=== PATIENT | female | born 1990 | race Two or more races ===

== ENCOUNTER 2018-06-12 04:01 | Inpatient (IN) | payer MEDICAID ==
[2018-06-12] VITALS (9 sets, daily range): BP systolic 104–137; BP diastolic 48–83
[~2018-06-12] VITALS: Ht 157.5 cm; Wt 83.5 kg
[2018-06-12 05:56] LABS: INR 0.87 (0.9-1.15); Partial Thromboplastin Time 30.3 sec (23.78-33.04); Prothrombin Time 9.4 sec (9.27-12.13)
[2018-06-12 06:03] LABS: BUN/Creatinine Ratio 17.2; Calcium 8.8 mg/dL (8.5-10.1); Hematocrit 36.5 % (36.0-46.0); Hemoglobin 12.2 g/dL (12.2-16.2); Mean Corpuscular Hgb Conc. 33.3 g/dL (32.0-36.0); Mean Corpuscular Volume 90.2 fL (80.0-100.0); Platelet Count (auto) 241 10^3/uL (140-450); Potassium 3.7 mmol/L (3.5-5.1); Red Blood Cells 4.05 10^6/uL (4.0-5.20); Red Cell Distribution Width 14.6 % (11.8-14.3); White Blood Cell 11.6 10^3/uL (4.4-10.8)
[2018-06-12 06:04] LABS: Bilirubin, Total 0.4 mg/dL (0.2-1.0); Total Protein 7.1 g/dL (6.4-8.2)
[2018-06-12 06:11] LABS: Basophils % (manual) 0 (0.0-2.0); Blast Cells 0; Metamyelocytes % 0; Myelocytes % 0; Promyelocytes % 0; Reactive Lymphocytes 0
[2018-06-12] MEDS: LACTATED RINGER'S 1,000 ML IV SCH ×3 (06:22→22:00)
[2018-06-12 06:46] LABS: Band Neutrophils % (manual) 5; Eosinophils % (manual) 1 (0-7); Lymphocytes % (manual) 18 (10.0-50.0); Monocytes % (manual) 3 (0-12)
[2018-06-12] MEDS ORDERED: TETRACAINE 1% INJ 2 ML VIAL IJ ONE (06:48)
[2018-06-12] MEDS ORDERED: LIDOCAINE 1% HCL (LOCAL ANESTH.) INJ 20ML MDV ONE (06:48)
[2018-06-12] MEDS ORDERED: OXYTOCIN 10 UNIT/ML 10ML VIAL ONE (06:56)
[2018-06-12] MEDS ORDERED: MORPHINE SULF(PF) 0.5MG/ML 10ML VIAL ONE (06:56)
[2018-06-12] MEDS ORDERED: ePHEDrine SULFATE 50 MG/ML AMP ONE (06:56)
[2018-06-12] MEDS ORDERED: fentaNYL CITRATE 100 MCG/2 ML VL ONE (06:56)
[2018-06-12] MEDS ORDERED: ceFAZolin 1GM VL ONE (06:56)
[2018-06-12] MEDS ORDERED: MIDAZOLAM HCL 1MG/1ML-2 ML VIAL ONE (06:56)
[2018-06-12] MEDS ORDERED: SODIUM CHLORIDE LOCK 10 ML ONE (06:56)
[2018-06-12] MEDS ORDERED: ONDANSETRON HCL 4 MG/2 ML VIAL ONE (06:56)
[2018-06-12 06:57] LABS: Urine Bacteria NONE SEEN /hpf (None Seen); Urine Blood Negative /uL (Negative); Urine Mucus FEW (None Seen); Urine Specific Gravity 1.013 (1.001-1.035); Urine WBC 1 /hpf (0 - 5)
[2018-06-12 07:05] LABS: Alcohol, Urine < 3.0 mg/dL (0-5); Amphetamine Screen, Urine NEGATIVE (NEGATIVE); Barbiturate Scree,Urine NEGATIVE (NEGATIVE); Benzodiazephine Screen, Urine NEGATIVE (NEGATIVE); Cannabinoid Screen, Urine NEGATIVE (NEGATIVE); Cocaine Screen, Urine NEGATIVE (NEGATIVE); Opiate Scree,Urine NEGATIVE (NEGATIVE); Phencyclidine Screen, Urine NEGATIVE (NEGATIVE)
[2018-06-12] MEDS: LACT. RINGERS/OXYTOCIN 20UNITS 1,000 ML IV SCH ×2 (08:20→21:40)
[2018-06-12] MEDS ORDERED: ONDANSETRON HCL 4 MG/2 ML VIAL IV PRN ×2 (08:30→08:45)
[2018-06-12] MEDS: ceFAZolin 1GM/50ML 50 ML IV SCH ×2 (08:30→16:34)
[2018-06-12] MEDS ORDERED: HYDROmorphone HCL 2 MG/ML VL IV PRN ×2 (08:45)
[2018-06-12] MEDS ORDERED: KETOROLAC TROMETH 30 MG/ML 1ML VIAL IV ONE (08:45)
[2018-06-12] MEDS ORDERED: METOCLOPRAMIDE HCL 5MG/ml INJ 2ml VIAL IV ONE (08:45)
[2018-06-12] MEDS ORDERED: diphenhdrAMINE HCL 50 MG/1 ML VL IV PRN (08:45)
[2018-06-12] MEDS ORDERED: NALOXONE HCL 0.4 MG/ML VIAL IV PRN (08:45)
[2018-06-12] MEDS ORDERED: OXYTOCIN 10UNIT/ML 1ML VIAL ONE (09:05)
[2018-06-12] MEDS: KETOROLAC TROMETH 30 MG/ML 1ML VIAL IV PRN (19:19)
[2018-06-12 20:26] LABS: Basophils # (auto) 0 uL; Basophils % (auto) 0.1 % (0.0-2.0); Eosinophils # (auto) 0 uL; Hematocrit 31.1 % (36.0-46.0); Hemoglobin 10.4 g/dL (12.2-16.2); Lymphocytes # (auto) 1.2 uL; Lymphocytes % (auto) 7.2 % (10.0-50.0); Mean Corpuscular Hemoglobin 30.5 pg (28.0-32.0); Mean Corpuscular Hgb Conc. 33.5 g/dL (32.0-36.0); Monocytes # (auto) 0.8 uL; Monocytes % (auto) 4.9 % (0.0-12.0); Neutrophils # (auto) 15.1 uL; Neutrophils % (auto) 87.8 % (37.0-80.0); Platelet Count (auto) 268 10^3/uL (140-450); Red Blood Cells 3.41 10^6/uL (4.0-5.20); Red Cell Distribution Width 14.7 % (11.8-14.3); White Blood Cell 17.3 10^3/uL (4.4-10.8)
[2018-06-13] VITALS (7 sets, daily range): BP systolic 100–124; BP diastolic 51–97
[2018-06-13] MEDS: HYDROmorphone HCL 2 MG/ML VL IV PRN ×2 (00:13→06:02)
[2018-06-13] MEDS: ceFAZolin 1GM/50ML 50 ML IV SCH (00:29)
[2018-06-13 03:09] LABS: RPR Non Reactive (Non Reactive)
[2018-06-13] MEDS: KETOROLAC TROMETH 30 MG/ML 1ML VIAL IV PRN (03:56)
[2018-06-13] MEDS ORDERED: PREN27TA7 OR (05:24)
[2018-06-13] MEDS: LACTATED RINGER'S 1,000 ML IV SCH (05:30)
[2018-06-13] MEDS ORDERED: ceFAZolin 1GM/50ML 50 ML IV ONE (06:00)
[2018-06-13 07:58] LABS: Basophils # (auto) 0 uL; Basophils % (auto) 0.3 % (0.0-2.0); Eosinophils # (auto) 0.1 uL; Eosinophils % (auto) 0.6 % (0.0-7.0); Hematocrit 23.5 % (36.0-46.0); Hemoglobin 7.9 g/dL (12.2-16.2); Lymphocytes # (auto) 2.5 uL; Lymphocytes % (auto) 20.8 % (10.0-50.0); Mean Corpuscular Hemoglobin 30.4 pg (28.0-32.0); Mean Corpuscular Hgb Conc. 33.7 g/dL (32.0-36.0); Mean Corpuscular Volume 90.1 fL (80.0-100.0); Monocytes % (auto) 8.2 % (0.0-12.0); Neutrophils # (auto) 8.5 uL; Neutrophils % (auto) 70.1 % (37.0-80.0); Nucleated Red Blood Cells % 0.1 %; Platelet Count (auto) 224 10^3/uL (140-450); Red Blood Cells 2.61 10^6/uL (4.0-5.20); Red Cell Distribution Width 14.6 % (11.8-14.3); White Blood Cell 12.1 10^3/uL (4.4-10.8)
[2018-06-13] MEDS ORDERED: hydrOXYzine HCL 25 MG/ML VL IM ONE (08:15)
[2018-06-13] MEDS ORDERED: LACTATED RINGER'S 1,000 ML IV SCH (08:21)
[2018-06-13] MEDS ORDERED: BISACODYL 10 MG RECT SUPP PR PRN (08:30)
[2018-06-13] MEDS ORDERED: HYDROcodone-ACET 5/325MG TAB PO PRN (09:30)
[2018-06-13] MEDS: IBUPROFEN 800 MG TAB PO PRN ×2 (11:20→22:05)
[2018-06-13] MEDS: DOCUSATE SOD 100 MG CAP PO SCH ×2 (11:21→22:05)
[2018-06-13] MEDS: HYDROcodone-ACET 5/325MG TAB PO PRN ×3 (13:52→23:42)
[2018-06-13] MEDS: SIMETHICONE 80 MG CHEWABLE TABLET PO SCH ×3 (13:54→22:04)
[2018-06-14 03:15] VITALS: BP 105/40
[2018-06-14] MEDS: SIMETHICONE 80 MG CHEWABLE TABLET PO SCH ×4 (05:46→21:51)
[2018-06-14] MEDS: HYDROcodone-ACET 5/325MG TAB PO PRN ×3 (05:46→19:03)
[2018-06-14] MEDS: DOCUSATE SOD 100 MG CAP PO SCH ×2 (10:53→21:51)
[2018-06-14 11:00] VITALS: BP 118/61
[2018-06-14 15:04] VITALS: BP 128/73
[2018-06-14] MEDS: IBUPROFEN 800 MG TAB PO PRN (15:10)
[2018-06-14] MEDS: FERROUS SULFATE 325 MG TAB PO SCH ×2 (15:10→21:51)
[2018-06-14 19:30] VITALS: BP 131/83
[2018-06-14 22:30] VITALS: BP 124/77
[2018-06-15 03:00] VITALS: BP 122/68
[2018-06-15] MEDS: SIMETHICONE 80 MG CHEWABLE TABLET PO SCH (05:37)
[2018-06-15] MEDS ORDERED: TETANUS-DIPTH-ACEL PERTUSSIS 0.5ML SYRG IM ONE (06:30)
[2018-06-15 07:00] VITALS: BP 125/70
[2018-06-15 07:45] LABS: Hematocrit 23.8 % (36.0-46.0); Mean Corpuscular Hemoglobin 30.9 pg (28.0-32.0); Mean Corpuscular Hgb Conc. 33.8 g/dL (32.0-36.0); Mean Corpuscular Volume 91.5 fL (80.0-100.0); Platelet Count (auto) 244 10^3/uL (140-450); Red Cell Distribution Width 14.6 % (11.8-14.3); White Blood Cell 7.5 10^3/uL (4.4-10.8)
[2018-06-15 07:53] LABS: Band Neutrophils % (manual) 0; Basophils % (manual) 0 (0.0-2.0); Blast Cells 0; Metamyelocytes % 0; Myelocytes % 0; Promyelocytes % 0; Reactive Lymphocytes 0
[2018-06-15 09:27] LABS: Eosinophils % (manual) 1 (0-7); Lymphocytes % (manual) 28 (10.0-50.0); Monocytes % (manual) 7 (0-12)
[2018-06-15] MEDS: DOCUSATE SOD 100 MG CAP PO SCH (09:46)
[2018-06-15] MEDS: FERROUS SULFATE 325 MG TAB PO SCH (09:46)
== END 2018-06-15 10:00 | disposition home or self-care (01) | DRG 540 ==
LOC: LDRP 04:01
PROVIDERS: ADMIT Specialist; ATTEND Specialist
PROC: 10D00Z1 Extraction of Products of Conception, Low, Open Approach (ICD-10-PCS; principal; 2018-06-12 07:31)
DX: O34.211 Maternal care for low transverse scar from previous cesarean delivery (principal); Z37.0 Single live birth; Z3A.00 Weeks of gestation of pregnancy not specified
CPT/HCPCS: 36415; 51702; 59025; 80053; 80307; 81001; 85007; 85025; 85027; 85610; 85730; 86592; 86850; 86900; 86901; 96361; 96366; 96372; 96375; J0690; J1885; J2001; J2250; J2405; J2590

== ENCOUNTER 2018-06-23 13:38 | Inpatient (IN) | payer MEDICAID ==
[~2018-06-23] VITALS: Ht 157.5 cm; Wt 78.4 kg
[~2018-06-23 13:38] MED LIST: PREN27TA7 OR
[2018-06-23] MEDS ORDERED: SODIUM CHLORIDE 0.9% 500 ML IV ONE (16:30)
[2018-06-23 17:14] LABS: Basophils # (auto) 0 uL; Eosinophils # (auto) 0.1 uL; Hematocrit 28.4 % (36.0-46.0); Lymphocytes # (auto) 1.3 uL; Neutrophils # (auto) 9.9 uL; Neutrophils % (auto) 82.8 % (37.0-80.0); White Blood Cell 11.9 10^3/uL (4.4-10.8)
[2018-06-23 17:16] LABS: Basophils % (auto) 0.2 % (0.0-2.0); Eosinophils % (auto) 0.5 % (0.0-7.0); Hemoglobin 9.5 g/dL (12.2-16.2); Lymphocytes % (auto) 10.8 % (10.0-50.0); Mean Corpuscular Hemoglobin 29.7 pg (28.0-32.0); Mean Corpuscular Hgb Conc. 33.3 g/dL (32.0-36.0); Monocytes # (auto) 0.7 uL; Monocytes % (auto) 5.7 % (0.0-12.0); Platelet Count (auto) 668 10^3/uL (140-450); Red Blood Cells 3.19 10^6/uL (4.0-5.20); Red Cell Distribution Width 14.9 % (11.8-14.3)
[2018-06-23 17:37] LABS: Albumin 3.2 g/dL (3.4-5.0); BUN/Creatinine Ratio 19.5; Bilirubin, Total 0.6 mg/dL (0.2-1.0); Calcium 8.5 mg/dL (8.5-10.1); Potassium 3.9 mmol/L (3.5-5.1)
[2018-06-23 18:32] LABS: Urine Bacteria NONE SEEN /hpf (None Seen); Urine Blood 1+ /uL (Negative); Urine Specific Gravity 1.007 (1.001-1.035); Urine WBC <1 /hpf (0 - 5)
[2018-06-23] MEDS ORDERED: ONDANSETRON HCL 4 MG/2 ML VIAL IV ONE (19:15)
[2018-06-23] MEDS ORDERED: MORPHINE SULFATE 4 MG/ML SYR/VIAL IV ONE (19:15)
[2018-06-23] MEDS ORDERED: ONDANSETRON HCL 4 MG/2 ML VIAL IV PRN (19:30)
[2018-06-23] MEDS ORDERED: DOCUSATE SOD 100 MG CAP PO ONE (19:45)
[2018-06-23] MEDS ORDERED: PIPERACILLIN-TAZOB 3.375GM 100 ML IV ONE (19:45)
[2018-06-23] MEDS ORDERED: BISACODYL 10 MG RECT SUPP PR ONE (19:45)
[2018-06-23] MEDS ORDERED: LACTULOSE 20Gm/30ML SOLN PO ONE (19:45)
[2018-06-23] MEDS ORDERED: IOHEXOL 300 MG/ML 100ML BOTTLE IJ ONE (20:21)
[2018-06-23] MEDS: MORPHINE SULF INJ 2 MG/ML SYRINGE 1ML IV PRN (21:09)
[2018-06-23] MEDS: SODIUM CHLORIDE 0.9% 1,000 ML IV SCH (21:14)
[2018-06-23 22:00] VITALS: BP_SYST 111; BP_SYST 132; BP_DIAS 57; BP_DIAS 80
[2018-06-23] MEDS: ONDANSETRON HCL 4 MG/2 ML VIAL IV SCH (22:00)
[2018-06-24] MEDS: SODIUM CHLORIDE 0.9% 1,000 ML IV SCH ×3 (01:38→20:15)
[2018-06-24] MEDS: ONDANSETRON HCL 4 MG/2 ML VIAL IV SCH ×3 (02:00→09:33)
[2018-06-24 04:47] VITALS: BP 115/64
[2018-06-24 06:11] LABS: Mean Corpuscular Volume 88.9 fL (80.0-100.0); Monocytes # (auto) 0.7 uL; White Blood Cell 9.6 10^3/uL (4.4-10.8)
[2018-06-24 06:14] LABS: Basophils # (auto) 0 uL; Basophils % (auto) 0.4 % (0.0-2.0); Eosinophils # (auto) 0.1 uL; Eosinophils % (auto) 0.6 % (0.0-7.0); Hematocrit 25.1 % (36.0-46.0); Hemoglobin 8.5 g/dL (12.2-16.2); Lymphocytes # (auto) 1.5 uL; Lymphocytes % (auto) 16.1 % (10.0-50.0); Mean Corpuscular Hemoglobin 29.9 pg (28.0-32.0); Mean Corpuscular Hgb Conc. 33.6 g/dL (32.0-36.0); Monocytes % (auto) 7.7 % (0.0-12.0); Neutrophils # (auto) 7.2 uL; Neutrophils % (auto) 75.2 % (37.0-80.0); Platelet Count (auto) 605 10^3/uL (140-450); Red Blood Cells 2.83 10^6/uL (4.0-5.20)
[2018-06-24 06:23] LABS: INR 0.98 (0.9-1.15); Prothrombin Time 10.5 sec (9.27-12.13)
[2018-06-24 06:34] LABS: Albumin 2.6 g/dL (3.4-5.0); BUN/Creatinine Ratio 17.4; Bilirubin, Total 0.4 mg/dL (0.2-1.0); Calcium 7.8 mg/dL (8.5-10.1); Total Protein 6.5 g/dL (6.4-8.2)
[2018-06-24 08:52] VITALS: BP 119/67
[2018-06-24] MEDS ORDERED: ACETAMINOPHEN 500 MG TAB PO PRN (11:45)
[2018-06-24 12:42] VITALS: BP 116/66
[2018-06-24 17:00] VITALS: BP 120/66
[2018-06-24 21:42] VITALS: BP 128/72
[2018-06-24] MEDS: MORPHINE SULF INJ 2 MG/ML SYRINGE 1ML IV PRN (23:28)
[2018-06-25] MEDS: SODIUM CHLORIDE 0.9% 1,000 ML IV SCH (00:59)
[2018-06-25 04:28] VITALS: BP 122/71
[2018-06-25 08:28] VITALS: BP 132/70
[2018-06-25] MEDS ORDERED: IOHEXOL 300 MG/ML 100ML BOTTLE IJ ONE (08:51)
[2018-06-25 11:43] VITALS: BP 121/85
== END 2018-06-25 14:00 | disposition home or self-care (01) | DRG 532 ==
LOC: ER 13:38 → OVERFLOW 13:39 → WEST WING 21:49
PROVIDERS: ADMIT Specialist; ATTEND Specialist
DX: S37.62XA Contusion of uterus, initial encounter (principal); D64.9 Anemia, unspecified; Z98.891 History of uterine scar from previous surgery; K59.00 Constipation, unspecified; F17.200 Nicotine dependence, unspecified, uncomplicated; X58.XXXA Exposure to other specified factors, initial encounter; Y93.89 Activity, other specified; Y92.89 Other specified places as the place of occurrence of the external cause; Y99.8 Other external cause status
CPT/HCPCS: 36415; 74177; 76856; 80053; 81001; 84702; 85025; 85384; 85610; 86850; 86900; 86901; 96361; 96374; 96375; J2405; J2543

== ENCOUNTER 2018-07-23 23:38 | Emergency (ER) | payer SELFPAY ==
[~2018-07-23] VITALS: Ht 157.5 cm; Wt 73.5 kg
[2018-07-24 00:49] LABS: Basophils # (auto) 0.1 uL; Basophils % (auto) 0.8 % (0.0-2.0); Eosinophils # (auto) 0.3 uL; Eosinophils % (auto) 4.1 % (0.0-7.0); Hematocrit 38.2 % (36.0-46.0); Hemoglobin 12.7 g/dL (12.2-16.2); Lymphocytes # (auto) 3.2 uL; Lymphocytes % (auto) 41.5 % (10.0-50.0); Mean Corpuscular Hemoglobin 29.2 pg (28.0-32.0); Mean Corpuscular Hgb Conc. 33.2 g/dL (32.0-36.0); Monocytes # (auto) 0.5 uL; Monocytes % (auto) 6.5 % (0.0-12.0); Neutrophils # (auto) 3.6 uL; Neutrophils % (auto) 47.1 % (37.0-80.0); Nucleated Red Blood Cells % 0.1 %; Platelet Count (auto) 246 10^3/uL (140-450); Red Blood Cells 4.34 10^6/uL (4.0-5.20); Red Cell Distribution Width 15.6 % (11.8-14.3); White Blood Cell 7.7 10^3/uL (4.4-10.8)
[2018-07-24 00:52] LABS: Urine Bacteria NONE SEEN /hpf (None Seen); Urine Blood 3+ /uL (Negative); Urine Mucus FEW (None Seen); Urine Specific Gravity 1.024 (1.001-1.035); Urine WBC 33 /hpf (0 - 5)
[2018-07-24 00:58] LABS: INR 0.93 (0.9-1.15)
[2018-07-24 01:04] LABS: Albumin 3.7 g/dL (3.4-5.0); BUN/Creatinine Ratio 18.1; Calcium 8.5 mg/dL (8.5-10.1); Potassium 3.9 mmol/L (3.5-5.1)
[2018-07-24 01:07] LABS: Bilirubin, Total 0.2 mg/dL (0.2-1.0)
[2018-07-24] MEDS: cefTRIAXone 1GM/10ml IVPUSH 10 ML IV ONE (08:10)
[2018-07-24] MEDS: SODIUM CHLORIDE 0.9% 1,000 ML IVB ONE (08:10)
[2018-07-24 11:50] VITALS: BP 124/77
== END 2018-07-24 11:53 | disposition home or self-care (01) ==
LOC: ER 23:39
DX: N93.9 Abnormal uterine and vaginal bleeding, unspecified (principal); Z98.890 Other specified postprocedural states
CPT/HCPCS: 36415; 74176; 80053; 81001; 81025; 85025; 85610; 85730; 96374; 99285; J0696; J7030

== ENCOUNTER 2021-01-11 15:57 | Emergency (ER) | payer BC, MEDICAID ==
[~2021-01-11] VITALS: Ht 157.5 cm; Wt 72.6 kg
[2021-01-11 15:57] VITALS: BP 135/87
[2021-01-11 17:18] LABS: Basophils # (auto) 0.1 10 ^3/uL (0-0.2); Basophils % (auto) 0.8 % (0.0-2.0); Eosinophils # (auto) 0.2 10 ^3/uL (0-0.8); Eosinophils % (auto) 1.8 % (0.0-7.0); Hematocrit 39.4 % (36.0-46.0); Hemoglobin 13.4 g/dL (12.2-16.2); Lymphocytes # (auto) 3.7 10 ^3/uL (0.4-5.4); Lymphocytes % (auto) 42.2 % (10.0-50.0); Mean Corpuscular Hemoglobin 30.2 pg (28.0-32.0); Mean Corpuscular Hgb Conc. 33.9 g/dL (32.0-36.0); Monocytes # (auto) 0.4 10 ^3/uL (0-1.3); Monocytes % (auto) 4.6 % (0.0-12.0); Neutrophils # (auto) 4.4 10 ^3/uL (1.6-8.6); Neutrophils % (auto) 50.6 % (37.0-80.0); Nucleated Red Blood Cells % 0.1 %; Platelet Count (auto) 305 10^3/uL (140-450); Red Blood Cells 4.43 10^6/uL (4.0-5.20); White Blood Cell 8.8 10^3/uL (4.4-10.8)
[2021-01-11 17:27] LABS: Calcium 9.2 mg/dL (8.5-10.1); Potassium 3.7 mmol/L (3.5-5.1)
[2021-01-11 17:37] LABS: BUN/Creatinine Ratio 19.5; Bilirubin, Total 0.2 mg/dL (0.2-1.0); Total Protein 7.9 g/dL (6.4-8.2)
[2021-01-11 19:31] LABS: Urine Amorphous Crystal FEW /hpf (None Seen); Urine Bacteria FEW /hpf (None Seen); Urine Blood 1+ /uL (Negative); Urine WBC 15 /hpf (0 - 5)
== END 2021-01-11 20:34 | disposition short-term general hospital (02) ==
LOC: ER 15:57
DX: N80.9 Endometriosis, unspecified (principal)
CPT/HCPCS: 36415; 76830; 76856; 80053; 81001; 84702; 85025